=== PATIENT | female | born 1980 | race Caucasian/White ===

== ENCOUNTER 2016-12-21 01:52 | Emergency (ER) | payer BC, OTHER ==
[~2016-12-21] VITALS: Ht 167.6 cm; Wt 54.4 kg
[2016-12-21] MEDS ORDERED: SILVER SULFADIAZINE CREAM 25 GM TUBE ONE (02:09)
[2016-12-21] MEDS ORDERED: TDAP [DIPH/PERTUSSIS/TET] 0.5 ML VIAL IM ONE ×2 (02:09→02:30)
[2016-12-21] MEDS ORDERED: GENTAMICIN 0.1% OINT 15 GM TUBE TP ONE ×2 (02:11→02:30)
[2016-12-21 02:31] VITALS: BP 117/82
== END 2016-12-21 02:32 | disposition home or self-care (01) ==
LOC: ER 01:54
DX: T23.222A Burn of second degree of single left finger (nail) except thumb, initial encounter (principal); Z88.0 Allergy status to penicillin; Z88.2 Allergy status to sulfonamides; X19.XXXA Contact with other heat and hot substances, initial encounter; Y93.89 Activity, other specified; Y92.89 Other specified places as the place of occurrence of the external cause; Y99.0 Civilian activity done for income or pay
CPT/HCPCS: 16020; 90471; 90715; 99284; A4606; Z7610